=== PATIENT | female | born 1945 | race Caucasian/White ===

== ENCOUNTER 2016-07-20 06:46 | Day surgery (SDC) | payer MEDICARE, OTHER ==
[2016-07-20] MEDS ORDERED: KETOROLAC 0.45% OPHTH DROPS OPTH ONE (07:15)
[2016-07-20] MEDS ORDERED: TROPICAMIDE 1% OPHTH 2 ML DROPS OPTH ONE (07:15)
[2016-07-20] MEDS ORDERED: CYCLOPENTOLATE 1% OPHTH DROPS 2 ML OPTH ONE (07:15)
[2016-07-20] MEDS ORDERED: LACTATED RINGERS 500 ML IV ONE (07:36)
[2016-07-20] MEDS ORDERED: levoFLOXacin 0.5% OPHTH DROPS 5 ML OPTH ONE (08:43)
[2016-07-20] MEDS ORDERED: TETRACAINE OPHTH DROPS 2 ML OPTH ONE (08:43)
[2016-07-20] MEDS ORDERED: CHONDR SULF/HYALURONATE SYRINGE IO ONE (08:43)
[2016-07-20] MEDS ORDERED: BSS/LIDOCAINE/EPINEPHRINE 1 ML SYRINGE IO ONE (08:43)
[2016-07-20] MEDS ORDERED: EPINEPHrine 1 MG/ML AMP IO ONE (08:43)
[2016-07-20] MEDS ORDERED: BRIMONIDINE 0.2% OPHTH DROPS 5 ML OPTH ONE (08:43)
[2016-07-20] MEDS ORDERED: PROPARACAINE 0.5% OPHTH DROPS 15 ML OPTH ONE (08:43)
[2016-07-20] MEDS ORDERED: LIDOCAINE-MPF 2% 5 ML VIAL IM ONE (08:44)
[2016-07-20] MEDS ORDERED: PROPOFOL 200 MG/20 ML VIAL IVP ONE (08:44)
[2016-07-20] MEDS ORDERED: MIDAZOLAM 2 MG/2 ML VIAL IVP ONE (08:44)
== END 2016-07-20 06:47 | disposition home or self-care (01) ==
PROC: 08RJ3JZ Replacement of Right Lens with Synthetic Substitute, Percutaneous Approach (ICD-10-PCS; principal; 2016-07-20 08:10)
DX: H25.11 Age-related nuclear cataract, right eye (principal); I10 Essential (primary) hypertension; E11.9 Type 2 diabetes mellitus without complications; K21.9 Gastro-esophageal reflux disease without esophagitis; E05.00 Thyrotoxicosis with diffuse goiter without thyrotoxic crisis or storm
CPT/HCPCS: 66984; V2632

== ENCOUNTER 2016-08-10 08:43 | Day surgery (SDC) | payer MEDICARE, OTHER ==
[2016-08-10] MEDS ORDERED: LACTATED RINGERS 500 ML IV ONE (09:27)
[2016-08-10] MEDS ORDERED: BRIMONIDINE 0.2% OPHTH DROPS 5 ML OPTH ONE ×2 (09:38→09:56)
[2016-08-10] MEDS ORDERED: PROPARACAINE 0.5% OPHTH DROPS 15 ML OPTH ONE ×2 (09:38→09:56)
[2016-08-10] MEDS ORDERED: EPINEPHrine 1 MG/ML AMP IO ONE ×2 (09:38→09:56)
[2016-08-10] MEDS ORDERED: CHONDR SULF/HYALURONATE SYRINGE IO ONE ×2 (09:39→09:56)
[2016-08-10] MEDS ORDERED: BSS/LIDOCAINE/EPINEPHRINE 1 ML SYRINGE IO ONE ×2 (09:39→09:56)
[2016-08-10] MEDS ORDERED: TETRACAINE OPHTH DROPS 2 ML OPTH ONE ×2 (09:39→09:56)
[2016-08-10] MEDS ORDERED: levoFLOXacin 0.5% OPHTH DROPS 5 ML OPTH ONE ×2 (09:39→09:56)
[2016-08-10] MEDS ORDERED: MIDAZOLAM 2 MG/2 ML VIAL IVP ONE (09:50)
== END 2016-08-10 08:44 | disposition home or self-care (01) ==
PROC: 08RK3JZ Replacement of Left Lens with Synthetic Substitute, Percutaneous Approach (ICD-10-PCS; principal; 2016-08-10 10:00)
DX: H25.12 Age-related nuclear cataract, left eye (principal); E05.00 Thyrotoxicosis with diffuse goiter without thyrotoxic crisis or storm; E11.9 Type 2 diabetes mellitus without complications; I10 Essential (primary) hypertension
CPT/HCPCS: 66984; V2632

== ENCOUNTER 2016-09-27 09:12 | Outpatient (CLI) | payer MEDICARE, OTHER | END 2016-09-27 09:13 | disposition home or self-care (01) | DX: E04.2 Nontoxic multinodular goiter (principal) ==

== ENCOUNTER 2016-10-18 10:19 | Outpatient (CLI) | payer MEDICARE, OTHER | END 2016-10-18 10:20 | disposition home or self-care (01) | DX: Z12.31 Encounter for screening mammogram for malignant neoplasm of breast (principal) ==

== ENCOUNTER 2016-10-24 09:10 | Outpatient (CLI) | payer MEDICARE, OTHER ==
[2016-10-24] MEDS ORDERED: BUFFERED LIDOCAINE 10 ML SYRINGE IU ONE (10:46)
== END 2016-10-24 09:11 | disposition home or self-care (01) ==
DX: E04.1 Nontoxic single thyroid nodule (principal)

== ENCOUNTER 2017-08-14 08:35 | Outpatient (CLI) | payer MEDICARE, OTHER ==
--- NOTE | 2017-08-14 14:59 | DEXA Report ---
DEXA SCAN: 08/14/2017 CLINICAL INDICATION: Osteopenia. TECHNIQUE: Dual energy x-ray absorptiometry (DXA) was performed on a [employer] system. Regions measured are the AP spine, femoral neck, and, if needed, forearm. COMPARISON: None. In accordance with the International Society for Clinical Densitometry (ISCD) guidelines, data from previous exams may be reanalyzed using current recommendations and techniques. This is done to allow a more accurate basis for comparison with the current study. FINDINGS The data for the lumbar spine is as follows: REGION BMD (g/cm/cm) T-SCORE Z-SCORE L1 1.116 -0.1 0.8 L2 1.237 0.3 1.2 L3 1.326 1.0 2.0 L4 1.471 2.3 3.2 L1-L4 TOTAL 1.299 1.0 1.9 NOTE: All evaluable vertebrae are used for classification. The data for the hip is as follows: REGION BMD (g/cm/cm) T-SCORE Z-SCORE Neck 0.860 -1.3 0.0 TOTAL 1.036 0.2 1.3 NOTE: The femoral neck or total proximal femur, whichever is lowest, is used for classification. IMPRESSION: THE WHO CLASSIFICATION BASED ON THE INTERNATIONAL REFERENCE STANDARD IS OSTEOPENIA (REFERENCE LEFT FEMORAL NECK). THE FRACTURE RISK IS INCREASED. RECOMMENDATION: Patients with diagnosis of osteoporosis or osteopenia should have regular bone mineral density assessment. For those eligible for Medicare, routine testing is allowed once every 2 years. Testing frequency can be increased for patients who have rapidly progressing disease or for those who are receiving medical therapy to restore bone mass. COMMENT: World Health Organization (WHO) definitions for osteoporosis and osteopenia: NORMAL BMD: T-score at 1.0 or higher, fracture risk is low. OSTEOPENIA BMD: T-score between 1.0 and -2.5, fracture risk is increased. OSTEOPOROSIS BMD: T-score at 2.5 or lower, fracture risk high. National Osteoporosis Foundation recommends: 1. Obtain adequate dietary calcium (at least 1200 mg per day) and vitamin D (400 -800 international units per day). 2. Participate, as appropriate, in regular weightbearing and muscle- strengthening exercise. 3. Avoid tobacco use and reduce alcohol and caffeine intake. 4. For more detailed information see the website at www.NOF.org. TD: 08/14/2017 12:14 MTDD
== END 2017-08-14 08:36 | disposition home or self-care (01) ==
LOC: DI 08:35
PROVIDERS: ATTEND Family Medicine
DX: M85.88 Other specified disorders of bone density and structure, other site (principal)
CPT/HCPCS: 77080

== ENCOUNTER 2017-10-25 11:18 | Outpatient (CLI) | payer MEDICARE, OTHER ==
[2017-10-25 12:33] LABS: ALBUMIN 4.2 g/dL (3.2-5.5); ALKALINE PHOSPHATASE 80 IU/L (42-121); ALT ALANINE AMINOTRANSFERASE 38 IU/L (10-60); AST ASPARTATE AMINOTRANSFERASE 34 IU/L (10-42); BILIRUBIN,TOTAL 0.3 mg/dL (0.2-1.0)
[2017-10-25 12:35] LABS: BILIRUBIN,DIRECT < 0.1 mg/dL (0.1-0.5)
[2017-10-25 12:51] LABS: THYROID STIMULATING HORMONE 4.32 uIU/mL (0.34-5.60)
[2017-10-25 12:53] LABS: FREE T4 (FREE THYROXINE) 0.74 ng/dL (0.58-1.64)
== END 2017-10-25 11:19 | disposition home or self-care (01) ==
LOC: LAB 11:18
PROVIDERS: ATTEND Internal Medicine Endocrinology, Diabetes & Metabolism
DX: E05.90 Thyrotoxicosis, unspecified without thyrotoxic crisis or storm (principal)
CPT/HCPCS: 36415; 80076; 84439; 84443; 84481

== ENCOUNTER 2017-10-27 10:41 | Outpatient (CLI) | payer MEDICARE, OTHER ==
--- NOTE | 2017-10-30 13:45 | Mammography Report ---
DIGITAL SCREENING MAMMOGRAM: 10/27/2017 CLINICAL INDICATION: A 71-year-old for screening. COMPARISON: 10/2016, 10/2015, 12/2013, 12/2012, 07/2010, 07/2009. TECHNIQUE: Routine CC and MLO projections were obtained of the breasts. FINDINGS: The breasts again demonstrate scattered fibroglandular densities bilaterally. Punctate, typically benign calcifications are present. No suspicious masses, clustered microcalcifications, or regions of architectural distortion are identified. IMPRESSION: BENIGN FINDINGS. RECOMMENDATION: Routine annual screening unless otherwise clinically indicated. BIRADS CATEGORY 2 - BENIGN FINDINGS. STANDARD QUALIFYING STATEMENTS: 1. This examination was reviewed with the aid of Computer-Aided Detection (CAD). 2. A negative or benign imaging report should not delay biopsy if clinically suspicious findings are present. Consider surgical consultation if warranted. More than 5% of cancers are not identified by imaging. 3. Dense breasts may obscure an underlying neoplasm. TD: 10/30/2017 13:44
== END 2017-10-27 10:42 | disposition home or self-care (01) ==
LOC: DI.N 10:41
PROVIDERS: ATTEND Family Medicine
DX: Z12.31 Encounter for screening mammogram for malignant neoplasm of breast (principal)
CPT/HCPCS: 77067

== ENCOUNTER 2018-03-09 08:04 | Outpatient (CLI) | payer MEDICARE, OTHER ==
--- NOTE | 2018-03-09 14:02 | Ultrasound Report ---
Reason: HYPERTHYROIDISM Procedure Date: 03/09/2018 Accession Number: [id number] / [id number] Procedure: US - Head or Neck Soft Tissue CPT Code: FULL RESULT: EXAM: THYROID ULTRASOUND EXAM DATE: 03/09/2018 09:14 AM. CLINICAL HISTORY: HYPERTHYROIDISM. COMPARISON: 09/27/2016. TECHNIQUE: Real time sonographic imaging of the thyroid was performed by the hydraulic barker operator. [employer] sales representative static images were saved for review. FINDINGS: THYROID GLAND: Right Lobe: 5.3 x 1.6 x 1.6 cm, volume 7 cc. Heterogeneous background echotexture. Right Lobe dominant Nodules: Heterogeneous lower pole 1.5 x 1.1 x 0.8 cm vascular nodule. 6 x 3 x 4 mm hypoechoic midpole nodule. Left Lobe: 5.1 x 2.1 x 1.7 cm, volume 9.5 cc. Heterogeneous background echotexture. Left Lobe dominant Nodules: Dominant 1.3 x 0.8 x 1.2 cm vascular echogenic mid pole nodule. 7 x 3 x 7 mm hypoechoic vascular upper pole nodule. Isthmus: 0.6 cm AP. Isthmic Nodules: None. LYMPH NODES: No adenopathy demonstrated in the central or lateral compartment. OTHER: Overall stable appearance of the multinodular goiter compared with 09/27/2016. IMPRESSION: Multinodular goiter without appreciable interval change since 09/27/2016. Management recommendations are based on 2015 [employer] Management Guidelines for Adult Patients with Thyroid Nodules and Differentiated Thyroid Cancer. RADIA
== END 2018-03-09 08:05 | disposition home or self-care (01) ==
LOC: DI 08:04
PROVIDERS: ATTEND Internal Medicine Endocrinology, Diabetes & Metabolism
DX: E05.20 Thyrotoxicosis with toxic multinodular goiter without thyrotoxic crisis or storm (principal)
CPT/HCPCS: 76536

== ENCOUNTER 2018-11-21 09:09 | Outpatient (CLI) | payer MEDICARE, OTHER ==
--- NOTE | 2018-11-22 09:20 | Mammography Report ---
Reason: SCREENING MAMMO Procedure Date: 11/21/2018 Accession Number: [id number] / [id number] Procedure: MGN - Screening Mammo Dig Bilat CPT Code: FULL RESULT: EXAM: Screening Mammo Dig Bilat DATE: 11/21/2018 9:33 AM CLINICAL HISTORY: Screening encounter. History of early menses. TECHNIQUE: (B) - Bilateral CC and MLO views were obtained. COMPARISON: 10/27/2017 through 12/11/2013. PARENCHYMAL PATTERN: (A) - The breast(s) demonstrate(s) scattered fibroglandular densities. FINDINGS: There are no suspicious masses, calcifications, or areas of distortion. IMPRESSION: Negative examination. BI-RADS category 1. RECOMMENDATION: (ANNUAL) - Recommend routine annual screening mammography. BI-RADS CATEGORY: (1) - Negative. STANDARD QUALIFYING STATEMENTS: 1. This examination was not reviewed with the aid of Computer-Aided Detection (CAD). 2. A negative or benign imaging report should not preclude biopsy if clinically suspicious findings are present. 3. Dense breasts may obscure an underlying neoplasm. 4. This examination was reviewed without the aid of 3D breast imaging (tomosynthesis).
== END 2018-11-21 09:10 | disposition home or self-care (01) ==
LOC: DI.N 09:09
DX: Z12.31 Encounter for screening mammogram for malignant neoplasm of breast (principal)
CPT/HCPCS: 77067

== ENCOUNTER 2018-12-19 12:07 | Outpatient (CLI) | payer MEDICARE, OTHER ==
--- NOTE | 2018-12-19 15:58 | Ultrasound Report ---
Reason: BONE SOFT TISSUE SKIN NEOPLASM UNSPEC BEHAVIOR Procedure Date: 12/19/2018 Accession Number: [id number] / [id number] Procedure: US - Chest CPT Code: FULL RESULT: EXAM: SOFT TISSUE ULTRASOUND - LIMITED, RIGHT BACK REGION EXAM DATE: 12/19/2018 12:52 PM. CLINICAL HISTORY: Bone soft tissue skin neoplasm unspecified behavior. COMPARISON: None. TECHNIQUE: Real-time scanning was performed with static images obtained. FINDINGS: The superficial soft tissues of the right back as indicated by the patient were examined with grayscale and limited color Doppler ultrasound. This demonstrates a well-demarcated, mildly hypoechoic, wider than tall, 10 cm x 4 cm mass in the subcutaneous soft tissues without increased vascularity by color Doppler. IMPRESSION: Well-demarcated 10 cm mass, mildly hypoechoic and nonspecific. While the appearance is overall relatively benign, it is less typical of a lipoma in that it is markedly different from the echogenicity of surrounding parenchyma and remarkably well demarcated compared to the surrounding subcutaneous adipose tissue. RADIA
== END 2018-12-19 12:08 | disposition home or self-care (01) ==
LOC: DI 12:07
PROVIDERS: ATTEND Family Medicine
DX: D49.2 Neoplasm of unspecified behavior of bone, soft tissue, and skin (principal)
CPT/HCPCS: 76604

== ENCOUNTER 2019-01-29 12:06 | Day surgery (SDC) | payer MEDICARE, OTHER ==
[2019-01-29] MEDS ORDERED: CEFAZOLIN SODIUM IN 0.9 % NACL 2 GM/100 ML BAG IV ONE (12:31)
[2019-01-29] MEDS ORDERED: LACTATED RINGERS 1,000 ML IV ONE ×2 (13:00→16:59)
[2019-01-29] MEDS ORDERED: INSULIN REGULAR HUMAN 100 UNIT/1 ML 10 ML MDV ONE (13:30)
--- NOTE | 2019-01-29 15:44 | ANESTHESIA ---
Pre-Anesthesia VS, & Labs - Diagnosis large lipoma posterier chest - Procedure excision lipoma of back Vital Signs: Temp Pulse Resp BP Pulse Ox 36.8 C 80 16 172/65 H 96 01/29/19 12:35 01/29/19 12:35 01/29/19 12:35 01/29/19 12:35 01/29/19 12:35 Height 5 ft 3 in Weight (kg) 88.7 kg - NPO >8 hours - Is Patient ?: Not Applicable Home Medications and Allergies Aspirin [Aspir-Low] 1 tab PO DAILY 07/20/16 Cholecalciferol (Vitamin D3) [Vitamin D3] 1 tab PO DAILY 07/20/16 Felodipine [Plendil] 2 oz PO DAILY 07/20/16 Insulin Aspart [NovoLOG] 20 units SQ TID 07/20/16 Insulin Glargine [Lantus] 75 units SQ DAILY 07/20/16 Lisinopril 1 tab PO DAILY 07/20/16 Metoprolol Succinate [Toprol Xl] 1 tab PO DAILY 07/20/16 Simvastatin [Zocor] 1 tab PO DAILY 07/20/16 Syringe,Insul U-500,Ndl,0.5ML [Insulin Syringe] 07/20/16 Tolterodine Tartrate [Detrol LA] 1 tab PO DAILY 07/20/16 metFORMIN [Glucophage] 1 tab PO BID 07/20/16 Allergies/Adverse Reactions: Allergies Allergy/AdvReac Type Severity Reaction Status Date / Time Sulfa (Sulfonamide Allergy Itching Verified 07/20/16 07:36 Antibiotics) Anes History & Medical History - Anesthetic History Anesthesia Complications: reports: No previous complications Family history of Anesthesia Complications: Denies Family history of Malignant Hyperthermia: Denies - Medical History Cardiovascular: reports: Hypertension, High cholesterol Pulmonary: reports: None Gastrointestinal: reports: GERD Urinary: reports: Incontinence, Frequency Musculoskeletal: reports: None Endocrine/Autoimmune: reports: Type 2 diabetes, HyPERthyroidism Skin: reports: None - Surgical History General: Cholecystectomy, Colonoscopy Eyes Ears Nose Throat (EENT): Cataracts Gynecologic: Tubal ligation Orthopedic: Carpal Tunnel surgery, Other Exam General: Alert, Oriented x3, Cooperative, No acute distress Dental: Other (caps) Mouth Openin Fingerbreadth Neck Mobility: Normal Mallampati classification: III Thyromental Distance: 4-6 cm Respiratory: Lungs clear, Normal breath sounds, No respiratory distress, No accessory muscle use Cardiovascular: Regular rate, Normal S1, Normal S2, No murmurs Plan Anesthesia Type: General Consent for Procedure(s) Verified and Reviewed: Yes Code Status: Attempt Resuscitation ASA classification: 2-Mild systemic disease Is this case an emergency?: No
[2019-01-29] MEDS ORDERED: LIDOCAINE 1% 10 ML MDV SUBQ ONE (16:31)
[2019-01-29] MEDS ORDERED: BUPIVACAINE 0.5%-EPI 1:200000 PF 30 ML VIAL SUBQ ONE (16:31)
--- NOTE | 2019-01-29 16:55 | OPERATIVE REPORT ---
Operative Report - General Procedure Date: 01/29/19 Planned Procedure: Excision of a large posterior chest lipoma Pre-Op Diagnosis: 15 to 20 cm lipoma on the right posterior chest Procedure Performed: Excision of large posterior chest lipoma Post Op Diagnosis: Same - Procedure Note Primary Surgeon: Ansley Anesthesia Provider: Patsy Anesthesia Technique: General ET tube Pathology: Lipomatous mass to pathology in formalin Estimated Blood Loss (mL): 10 Findings: 20 cm gelatinous and friable mass deep to the dermis and attached to the latissimus Complications: None apparent - Other Other Information/Narrative: After obtaining informed consent, the patient is brought to the operating room and placed in the supine position on the operating table. Following successful induction of general endotracheal anesthesia, appropriate padding of all bony prominences, and placement of appropriate monitors, the patient is gently rolled toward the left side and a small bump placed under her right shoulder to provide exposure. The right posterior chest is prepped and draped in the standard surgical fashion. A timeout was held per SCOAP protocol. Following infiltration with local anesthetic to create a field block, an incision was created directly over the mass and carried down through the skin and subcutaneous tissue. The mass was identified and finger dissected off of the underlying latissimus muscle. There was one significant neurovascular attachment and this was divided using cautery. The mass was then delivered into the field. It was noted that it was not terribly cohesive and had sort of a gelatinous texture. Once the entire mass had been removed, the wound was irrigated copiously with warm saline solution and aspirated free of all fluid and particulate matter. It was then closed in 2 layers with Vicryl and Monocryl sutures and Dermabond was applied to the skin. A binder and pressure dressing were applied to the area where the mass had been removed. All sponge, needle, and instrument counts were correct at the conclusion of the case. The patient was allowed to awake from anesthesia without significant difficulty and taken to the post-anesthesia care unit in good condition.
[2019-01-29] MEDS ORDERED: HYDROcod/ACETAM 5/325 MG TABLET PO PRN (16:58)
[2019-01-29] MEDS ORDERED: HYDROcod/ACETAM 7.5 MG/325 MG TABLET PO PRN (17:01)
[2019-01-29 17:35] VITALS: BP 151/63
[2019-01-29] MEDS ORDERED: HYDROcod/ACETAM 5/325 MG TABLET ONE (17:53)
== END 2019-01-29 12:07 | disposition home or self-care (01) ==
LOC: SDS 12:06
PROVIDERS: ATTEND Surgery
PROC: 0KBF0ZZ Excision of Right Trunk Muscle, Open Approach (ICD-10-PCS; principal; 2019-01-29 13:45)
DX: D17.1 Benign lipomatous neoplasm of skin and subcutaneous tissue of trunk (principal); E11.9 Type 2 diabetes mellitus without complications; I10 Essential (primary) hypertension; Z79.899 Other long term (current) drug therapy; Z79.4 Long term (current) use of insulin; Z79.82 Long term (current) use of aspirin
CPT/HCPCS: 21933; A9270; J0690; J7120

== ENCOUNTER 2022-07-27 08:46 | Outpatient (CLI) | payer MEDICARE, OTHER ==
--- NOTE | 2022-07-28 09:28 | Mammography Report ---
BILATERAL DIGITAL SCREENING MAMMOGRAM 3D/2D: 07/27/2022 CLINICAL: Routine screening. Comparison is made to exams dated: 11/21/2018 mammogram, 10/27/2017 mammogram, 10/18/2016 mammogram, 10/08/2015 mammogram, 12/11/2013 mammogram, and 12/03/2012 mammogram - [facility]. There are scattered areas of fibroglandular density in both breasts (category b / 25%-50% glandular t issue). No significant masses, calcifications, or other findings are seen in either breast. There has been no significant interval change. IMPRESSION: NEGATIVE There is no mammographic evidence of malignancy. A 1 year screening mammogram is recommended. Based on the Tyrer Cuzick model (a risk assessment model) the patients lifetime risk is 2.5% and her 10 year risk is 0.0%. According to the ACR, ACS, and NCCN guidelines, an annual breast MRI exam luis g with mammogram is recommended if the patients lifetime risk is 20% or greater. This exam was interpreted at Station ID: [id number]. NOTE: For mammograms, a report in lay terms will be sent to the patient. Approximately 15% of breast malignancies will not be visualized mammographically. In the management of a palpable breast mass, a negative mammogram must not discourage biopsy of a clinically suspicious lesion. Electronically Signed By: Mojgan [email or web address]:07/27/2022 17:03:06 ACR BI-RADS Category 1: Negative [id number] PARENCHYMAL PATTERN: (A) - The breast(s) demonstrate(s) scattered fibroglandular densities. BI-RADS CATEGORY: (1) - 1 RECOMMENDATION: (ANNUAL) - Recommend routine annual screening mammography. [id number] 1 year screening LATERALITY: (B)
== END 2022-07-27 08:47 | disposition home or self-care (01) ==
LOC: DI.N 08:46
DX: Z12.31 Encounter for screening mammogram for malignant neoplasm of breast (principal)

== ENCOUNTER 2023-09-07 07:38 | Day surgery (SDC) | payer MEDICARE, OTHER ==
[2023-09-07] MEDS: LACTATED RINGERS 1,000 ML IV ONE ×3 (07:43→11:03)
[2023-09-07] MEDS ORDERED: ceFAZolin 2 GM VIAL ONE (08:14)
--- NOTE | 2023-09-07 08:40 | ANESTHESIA ---
Pre-Anesthesia VS, & Labs - Diagnosis back mass, 10cm - Procedure excision, back mass Vital Signs: Temp Pulse Resp BP Pulse Ox O2 Flow Rate 36 C L 90 18 161/72 H 96 09/07/23 07:47 09/07/23 07:47 09/07/23 07:47 09/07/23 07:47 09/07/23 07:47 Height: 5 ft 3 in Weight (kg): 79.8 kg Body Mass Index: 31.1 BMI Classification: Obese - NPO >8 hours - Is Patient ?: No - Lab Results Current Lab Results: Laboratory Tests 09/07/23 08:06: POC Whole Bld Glucose 86 Lab results reviewed: Yes Home Medications and Allergies Cholecalciferol (Vitamin D3) [Vitamin D3] 1 tab PO DAILY 07/20/16 Felodipine [Plendil] 2 oz PO DAILY 07/20/16 Insulin Aspart [NovoLOG] 20 units SQ TID 07/20/16 Insulin Glargine [Lantus] 75 units SQ DAILY 07/20/16 Lisinopril 1 tab PO DAILY 07/20/16 Metoprolol Succinate [Toprol Xl] 1 tab PO DAILY 07/20/16 Simvastatin [Zocor] 1 tab PO DAILY 07/20/16 Syringe,Insul U-500,Ndl,0.5ML [Insulin Syringe] 07/20/16 metFORMIN [Glucophage] 1 tab PO BID 07/20/16 Allergies/Adverse Reactions: Allergies Allergy/AdvReac Type Severity Reaction Status Date / Time Sulfa (Sulfonamide Allergy Itching Verified 07/20/16 07:36 Antibiotics) Anes History & Medical History - Anesthetic History Anesthesia Complications: reports: No previous complications Family history of Anesthesia Complications: Denies Family history of Malignant Hyperthermia: Denies - Medical History Cardiovascular: reports: Hypertension Pulmonary: reports: None Gastrointestinal: reports: Cholelithiasis Urinary: reports: None Musculoskeletal: reports: None Endocrine/Autoimmune: reports: Type 2 diabetes Skin: reports: None - Surgical History General: reports: Cholecystectomy Eyes Ears Nose Throat (EENT): reports: Cataracts Gynecologic: reports: Tubal ligation Orthopedic: reports: Other Exam General: Alert, Oriented x3, Cooperative Dental: WNL Mouth Openin Fingerbreadth Neck Mobility: Normal Mallampati classification: II Thyromental Distance: 4-6 cm Respiratory: Lungs clear, Normal breath sounds, No respiratory distress Cardiovascular: Regular rate Neurological: Normal speech Mental/Cognitive Status: Alert/Oriented X3, Normal for patient Cognitive Status: Within normal limits Plan Anesthesia Type: General (L Lateral with LMA) Consent for Procedure(s) Verified and Reviewed: Yes Code Status: Attempt Resuscitation ASA classification: 2-Mild systemic disease Is this case an emergency?: No
[2023-09-07] MEDS ORDERED: HYDROmorphone 0.5 MG/0.5 ML SYRINGE IVP PRN ×3 (08:41→10:45)
[2023-09-07] MEDS ORDERED: MORPHINE 2 MG/ML CARPUJECT IVP PRN ×2 (08:41→10:36)
[2023-09-07] MEDS ORDERED: ATROPINE ABBOJECT 1 MG/10 ML SYRINGE IVP PRN ×2 (08:41→10:36)
[2023-09-07] MEDS ORDERED: METOCLOPRAMIDE 10 MG/2 ML VIAL IVP PRN ×2 (08:41→10:36)
[2023-09-07] MEDS ORDERED: fentaNYL 100 MCG/2 ML VIAL IVP PRN ×2 (08:41→10:36)
[2023-09-07] MEDS ORDERED: ePHEDrine 50 MG/ML VIAL IVP PRN ×2 (08:41→10:36)
[2023-09-07] MEDS ORDERED: ONDANSETRON 4 MG/2 ML VIAL IVP PRN ×3 (08:41→10:45)
[2023-09-07] MEDS ORDERED: NALOXONE 0.4 MG/ML VIAL IVP PRN ×2 (08:41→10:36)
[2023-09-07] MEDS ORDERED: PROPOFOL 200 MG/20 ML VIAL IVP ONE (08:48)
[2023-09-07] MEDS ORDERED: LIDOCAINE-PF 2% 10 ML AMP SUBQ ONE (08:48)
[2023-09-07] MEDS ORDERED: MIDAZOLAM 2 MG/2 ML VIAL ONE (08:48)
[2023-09-07] MEDS ORDERED: fentaNYL 100 MCG/2 ML VIAL ONE (08:48)
[2023-09-07] MEDS ORDERED: BUPIVACAINE 0.25% PF 30 ML VIAL ONE ×2 (08:52→09:51)
[2023-09-07] MEDS: BUPIVACAINE 0.25% PF 30 ML VIAL SUBQ ONE ×3 (08:57→09:56)
[2023-09-07] MEDS ORDERED: LACTATED RINGERS 1,000 ML IV SCH ×2 (09:00→10:36)
[2023-09-07] MEDS ORDERED: ONDANSETRON 4 MG/2 ML VIAL ONE (09:30)
[2023-09-07] MEDS ORDERED: DEXAMETHASONE 4 MG/ML VIAL ONE (09:30)
[2023-09-07] MEDS ORDERED: ePHEDrine 50 MG/ML VIAL IVP ONE (09:34)
[2023-09-07] MEDS ORDERED: SODIUM CHLORIDE 0.9% 10 ML VIAL IVP ONE (09:34)
[2023-09-07] MEDS ORDERED: GLYCOPYRROLATE 1 MG/5 ML VIAL ONE (09:57)
--- NOTE | 2023-09-07 10:53 | OPERATIVE REPORT ---
Operative Report - General Procedure Date: 09/07/23 Planned Procedure: excision 10x 10 cm recurrent right back lipoma Pre-Op Diagnosis: recurrent back lipoma vs chronic seroma Procedure Performed: excision 10 x 10 cm recurrent back lipoma 8 cm intermediate repair back Post Op Diagnosis: recurrent back lipoma - Procedure Note Primary Surgeon: isaak moy Anesthesia Technique: General ET tube, Local Pathology: sent Estimated Blood Loss (mL): 3 Drain/Tube Type: Jesus drain Indications: large symptomatic back mass Findings: benign appearing lipoma, partially intramuscular Complications: none - Other Other Information/Narrative: The patient was properly identified brought to the operating room and placed in supine position. Sequential compression devices were placed. She was carefully repositioned in the left lateral decubitus. She was prepped and draped in a sterile fashion and given preoperative antibiotics. She had a prior approximately 4 cm horizontal incision from prior resection of a large lipoma. A vertical incision measuring approximately 8 cm was made in elliptical fashion removing the old scar. Dissection proceeded with cutting current cautery. She had an encapsulated approximately 10 x 10 cm lipoma which was partially intramuscular. It was removed in its entirety with gentle retraction and cutting current cautery. Hemostasis was assured. A 15 Jesus drain was placed through a caudad separate stab incision and secured with a 3-0 nylon. Deep subcutaneous tissue was closed with interrupted 2-0 Vicryl suture. More super ficial subcutaneous tissue was closed with an additional layer of interrupted 2-0 Vicryl suture. Buried interrupted subdermal 3-0 Vicryl sutures were then placed. Skin was closed with a running 4-0 Monocryl subcuticular suture. Dressing was applied. She was awakened and brought to recovery in good condition.
[2023-09-07 11:20] VITALS: O2SAT 96
[2023-09-07] MEDS ORDERED: HYDROcod/ACETAM 5/325 MG TABLET ONE (11:33)
[2023-09-07] MEDS: HYDROcod/ACETAM 5/325 MG TABLET PO PRN (11:35)
[2023-09-07 12:10] VITALS: BP 148/73
--- NOTE | 2023-09-07 12:59 | ANESTHESIA POST OP EVALUATION ---
Anesthesia Post Eval - Post Anesthesia Eval Vitals: Last Vital Signs Temp 36.3 C L 09/07/23 12:08 Pulse 103 H 09/07/23 12:08 Resp 16 09/07/23 12:08 BP 148/73 H 09/07/23 12:08 Pulse Ox 96 09/07/23 12:08 O2 Flow Rate CV Function Including HR & BP: Stable Pain Control: Satisfactory Nausea & Vomiting: Negative Mental Status: Baseline Respiratory Status: Airway Patent Hydration Status: Satisfactory Anesthesia Complications: None
== END 2023-09-07 07:39 | disposition home or self-care (01) ==
LOC: SDS 07:38
PROVIDERS: ATTEND Surgery
PROC: 0JB70ZZ Excision of Back Subcutaneous Tissue and Fascia, Open Approach (ICD-10-PCS; principal; 2023-09-07 09:30)
DX: D17.9 Benign lipomatous neoplasm, unspecified (principal); E66.9 Obesity, unspecified; E11.9 Type 2 diabetes mellitus without complications; Z79.4 Long term (current) use of insulin; Z79.84 Long term (current) use of oral hypoglycemic drugs
CPT/HCPCS: 21933; A9270; J7120